=== PATIENT | female | born 1955 | race African-American/Black ===

== ENCOUNTER 2024-12-03 18:46 | Emergency (ER) | payer OTHER ==
[~2024-12-03] VITALS: Ht 157.5 cm; Wt 70.0 kg
[2024-12-03 18:57] VITALS: BP 146/90; PULSE 119; RESP 16; TEMP 36.9; O2SAT 98
== END 2024-12-03 21:22 | disposition left against medical advice (07) ==
LOC: ER 18:46
DX: R04.0 Epistaxis (principal); Z53.21 Procedure and treatment not carried out due to patient leaving prior to being seen by health care provider